=== PATIENT | male | born 1930 | race Caucasian/White ===

== ENCOUNTER 2017-06-23 17:33 | Inpatient (IN) | payer BC, OTHER ==
[~2017-06-23] VITALS: Ht 172.7 cm; Wt 69.4 kg
[2017-06-23] MEDS ORDERED: HYDR25TA4 PO (18:02)
[2017-06-23] MEDS ORDERED: ESOM40CA PO (18:02)
[2017-06-23] MEDS ORDERED: NEBI20TA2 PO (18:02)
[2017-06-23] MEDS ORDERED: PRAV40TA3 PO (18:02)
[2017-06-23] MEDS ORDERED: CILO100T PO (18:02)
--- NOTE | 2017-06-23 19:16 | NUR ---
REPORT RECEIVED. PT MOVED TO 2A. PT C/O HEAD TRAUMA SECONDARY TO A FALL. DENIES KO. ALERT AND ORIENTED. SKINS WARM AND DRY. BANDAGE ON HEAD PLACED BY PM INTACT.
[2017-06-23 19:43] LABS: BASOPHILS % (AUTO) 0.4 % (0.0-2.0); EOSINOPHILS # (AUTO) 0.1 K/uL (0.0-0.7); HEMATOCRIT 39.2 % (36.7-47.1); HEMOGLOBIN 13.5 g/dL (12.5-16.3); LYMPHOCYTES # (AUTO) 0.6 K/uL (20.0-40.0); LYMPHOCYTES % (AUTO) 6.2 % (20.5-51.5); MEAN CORPUSCULAR HEMOGLOBIN 31.1 uug (23.8-33.4); MEAN CORPUSCULAR HGB CONC 35 g/dL (32.5-36.3); MEAN CORPUSCULAR VOLUME 90.1 fL (73.0-96.2); MONOCYTES # (AUTO) 0.7 K/uL (2.0-10.0); NEUTROPHILS # (AUTO) 8.6 K/uL (1.8-8.9); NEUTROPHILS % (AUTO) 85.4 % (38.5-71.5); PLATELET COUNT (AUTO) 204 K/uL (152-348); RED BLOOD CELL COUNT(AUTO) 4.35 MIL/uL (4.06-5.63); WHITE BLOOD COUNT (AUTO) 10.1 K/uL (3.6-10.2)
[2017-06-23 19:57] LABS: ALANINE AMINOTRANSFERASE 22 U/L (16-63); ALKALINE PHOSPHATASE 43 U/L (50-136); ASPARTATE AMINOTRANSFERASE 19 U/L (15-37); BILIRUBIN,DIRECT 0.1 mg/dL (0.0-0.2); BILIRUBIN,TOTAL 0.5 mg/dL (0.2-1.0); CARBON DIOXIDE 32 mmol/L (21-32); CHLORIDE 101 mmol/L (98-107); CREATININE 0.9 mg/dL (0.6-1.3); GLUCOSE 133 mg/dL (74-106); TOTAL PROTEIN, SERUM 7.1 g/dL (6.4-8.2); UREA NITROGEN, BLOOD 20 mg/dL (7-18)
[2017-06-23 19:59] LABS: POTASSIUM 2.8 mmol/L (3.5-5.1)
[2017-06-23] MEDS ORDERED: TDAP DIPH,PERTUSS,TET VAC/PF 0.5 ML DISP.SYRIN IM ONE ×2 (20:00→23:21)
[2017-06-23] MEDS ORDERED: NEOMY/BACITRA/POLYMYXIN B OINT UD PACKET TP ONE ×2 (20:00→22:23)
[2017-06-23] MEDS ORDERED: SODIUM BICARBONATE 4.2 % (NEUT) 5 ML VIAL TP ONE (20:00)
[2017-06-23] MEDS ORDERED: LIDOCAINE HCL 2% 20 ML VIAL TP ONE (20:00)
[2017-06-23] MEDS ORDERED: LET TOPICAL SOLUTION 8 ML UDC TOP ONE (20:00)
--- NOTE | 2017-06-23 20:31 | NUR ---
PT SEEN BY . Rajinder/Kleber - 20G - PLACED IN LEFT A/C. WOUND TO RIGHT HAND AND SCALP IRRIGATED. CXR DONE.
[2017-06-23] MEDS ORDERED: LET TOPICAL SOLUTION 8 ML UDC ONE (20:37)
--- NOTE | 2017-06-23 20:43 | NUR ---
LET APPLIED TO RIGHT HAND.
[2017-06-23] MEDS ORDERED: POT CHLORIDE/POT BICARB/CIT AC 25 MEQ TABLET.EFF PO ONE (20:45)
--- NOTE | 2017-06-23 22:01 | NUR ---
CURRENTLY SUTURING SCALP AND RIGHT HAND.
[2017-06-23] MEDS ORDERED: POTASSIUM BICARBONATE/CIT AC 25 MEQ TABLET.EFF ONE (23:21)
[2017-06-23] MEDS ORDERED: HYDROCODONE/APAP 5-325MG TABLET PO PRN (23:30)
[2017-06-23] MEDS ORDERED: ACETAMINOPHEN 325 MG TABLET PO PRN (23:30)
[2017-06-23] MEDS ORDERED: POTASSIUM CHLORIDE 20 MEQ in IV 1/2NS 1000 ML 1,000 ML IV PRN (23:30)
[2017-06-23] MEDS ORDERED: ONDANSETRON 4 MG/2 ML VIAL IV PRN (23:30)
[2017-06-23] MEDS ORDERED: MAGNESIUM HYDROXIDE 30 ML LIQUID UDC PO PRN (23:30)
[2017-06-23] MEDS ORDERED: TEMAZEPAM 15 MG CAPSULE PO PRN (23:30)
--- NOTE | 2017-06-23 23:53 | NUR ---
ALL RESULTS BACK. DX - INTRACRANIAL BLEED. REPORT GIVEN TO MARYANN. PT TO GO TO 206A
--- NOTE | 2017-06-24 00:20 | NUR ---
ADMITTED NEW PATIENT TO ROOM 206,ACCOMPANY BY ,PATIENT ALERT, ORIENTED X3,SPEECH CLEAR,MOVES ALL EXTREMITIES, DRESSING TO HEAD C/D/I, NO FOCAL NEURO DEFICIT NOTED, ORIENTED TO ROOM AND PLAN OF CARE EXPLAINED TO PATIENT AND FAMILY.SR ON MONITOR.
[2017-06-24 01:00] VITALS: BP 138/68
[2017-06-24 04:56] VITALS: BP 120/56
--- NOTE | 2017-06-24 06:00 | NUR ---
DRESSING CHANGE TO LEFT SCALP LACERATION,SMALL AMOUNT OF BLOODY DRAINAGE NOTED,PATIENT REMAINS STABLE,NEURO CHECK WNL.
--- NOTE | 2017-06-24 06:00 | NUR ---
awake alert and oriented, denies of pain, head dsg in place with scant amount of old blood noted on the laceration site, neuro assessment done, tele SR, explained plan of care- verbalized understanding, sfety measures maintained, call light within reach Addendum: 06/24/17 at 1052 by MARIA D CHAPIN RN entry for 0800
[2017-06-24] MEDS ORDERED: PANTOPRAZOLE SODIUM 40 MG TABLET.DR PO SCH (07:00)
[2017-06-24] MEDS ORDERED: [UNRECOGNIZED DRUG - CODE] PO (07:07)
[2017-06-24] MEDS ORDERED: TEMAZEPAM 7.5 MG CAPSULE PO PRN (07:30)
[2017-06-24 07:33] VITALS: BP 146/69
[2017-06-24 08:22] LABS: IRON, SERUM 82 ug/dL (50-175)
[2017-06-24 08:23] LABS: BASOPHILS % (AUTO) 0.4 % (0.0-2.0); EOSINOPHILS # (AUTO) 0.1 K/uL (0.0-0.7); EOSINOPHILS % (AUTO) 1.9 % (0.0-7.0); HEMATOCRIT 36.5 % (36.7-47.1); HEMOGLOBIN 12.4 g/dL (12.5-16.3); LYMPHOCYTES # (AUTO) 0.8 K/uL (20.0-40.0); LYMPHOCYTES % (AUTO) 13.8 % (20.5-51.5); MEAN CORPUSCULAR HEMOGLOBIN 30.9 uug (23.8-33.4); MEAN CORPUSCULAR HGB CONC 34 g/dL (32.5-36.3); MEAN CORPUSCULAR VOLUME 90.7 fL (73.0-96.2); MONOCYTES # (AUTO) 0.7 K/uL (2.0-10.0); MONOCYTES % (AUTO) 12.3 % (0.0-11.0); NEUTROPHILS # (AUTO) 4.3 K/uL (1.8-8.9); NEUTROPHILS % (AUTO) 71.6 % (38.5-71.5); PLATELET COUNT (AUTO) 202 K/uL (152-348); RED BLOOD CELL COUNT(AUTO) 4.02 MIL/uL (4.06-5.63)
[2017-06-24 08:25] LABS: THYROID STIMULATING HORMONE 0.386 mIU/mL (0.358-3.740)
[2017-06-24 08:47] LABS: ALANINE AMINOTRANSFERASE 15 U/L (16-63); ALKALINE PHOSPHATASE 39 U/L (50-136); ASPARTATE AMINOTRANSFERASE 24 U/L (15-37); BILIRUBIN,TOTAL 0.3 mg/dL (0.2-1.0); CARBON DIOXIDE 31 mmol/L (21-32); CHLORIDE 103 mmol/L (98-107); CHOLESTEROL 119 mg/dL (<200); GLUCOSE 97 mg/dL (74-106); HDL CHOLESTEROL 61 mg/dL (40-60); MAGNESIUM 1.8 mg/dL (1.8-2.4); PHOSPHOROUS 3.3 mg/dL (2.5-4.9); POTASSIUM 3.1 mmol/L (3.5-5.1); TOTAL PROTEIN, SERUM 6.4 g/dL (6.4-8.2); TRIGLYCERIDES 92 MG/DL (30-150); UREA NITROGEN, BLOOD 21 mg/dL (7-18)
--- NOTE | 2017-06-24 09:45 | NUR ---
seen by Dr Lau with order for CT head with/without contrast- consent signed
[2017-06-24] MEDS ORDERED: IV NORMAL SALINE 250 ML IV ONE (09:58)
[2017-06-24] MEDS ORDERED: IOHEXOL 300MG/ML 100 ML INFUS..BTL ONE (09:58)
--- NOTE | 2017-06-24 10:30 | NUR ---
spoke to daughter Jenny- pt doesn't have any record Pneumonia vaccine given- requesting to be given upon discharge. Addendum: 06/24/17 at 1048 by MARIA D CHAPIN RN error
--- NOTE | 2017-06-24 10:45 | NUR ---
to CT dept per bed- at bedside
[2017-06-24 11:22] VITALS: BP 141/51
[2017-06-24] MEDS ORDERED: POTASSIUM CHLORIDE 20 MEQ TAB.PRT.SR PO ONE (11:30)
--- NOTE | 2017-06-24 12:00 | NUR ---
no change in neuro assessment
--- NOTE | 2017-06-24 14:30 | NUR ---
dsg on head off- cleansed scalp laceration with saline and washed surrounding areas, dried blood removed, 4x4 dsg applied
--- NOTE | 2017-06-24 15:30 | NUR ---
seen by Dr Mahoney- spoke to family at bedside
[2017-06-24 15:36] VITALS: BP 118/46
--- NOTE | 2017-06-24 15:40 | NUR ---
called Dr Lau's office and relayed CT scan head result and pt wants to go home
--- NOTE | 2017-06-24 16:20 | NUR ---
Dr Lau's office called and ok to be d/cd
--- NOTE | 2017-06-24 16:25 | NUR ---
Dr Mahoney informed- pt is going home, informed
[2017-06-24] MEDS ORDERED: ACET325T53 PO (17:49)
--- NOTE | 2017-06-24 18:20 | NUR ---
saline lock removed- no swelling/redness onsite, tele removed, discharge and medications instructions given- verbalized understanding, refused med instructions by pharmacist.
--- NOTE | 2017-06-24 18:30 | NUR ---
escorted to car per w/c with and daughter in stable condition, all belongings with him
[2017-06-24] MEDS ORDERED: DOCUSATE SODIUM 100 MG CAPSULE PO SCH (21:00)
== END 2017-06-24 18:30 | disposition home health service (06) | DRG 87 ==
LOC: ER 17:33 → DOU 06-24 00:25 → TELE-TD 06-24 01:00
PROVIDERS: ADMIT Internal Medicine; ATTEND Internal Medicine
PROC: 0HQ0XZZ Repair Scalp Skin, External Approach (ICD-10-PCS; principal; 2017-06-24)
PROC: 0HQFXZZ Repair Right Hand Skin, External Approach (ICD-10-PCS; principal; 2017-06-24)
DX: S06.340A Traumatic hemorrhage of right cerebrum without loss of consciousness, initial encounter (principal); I73.9 Peripheral vascular disease, unspecified; E78.5 Hyperlipidemia, unspecified; S01.01XA Laceration without foreign body of scalp, initial encounter; S61.216A Laceration without foreign body of right little finger without damage to nail, initial encounter; E87.6 Hypokalemia; I10 Essential (primary) hypertension; K21.9 Gastro-esophageal reflux disease without esophagitis; R73.03 Prediabetes; W01.0XXA Fall on same level from slipping, tripping and stumbling without subsequent striking against object, initial encounter; Y93.89 Activity, other specified; Y92.009 Unspecified place in unspecified non-institutional (private) residence as the place of occurrence of the external cause; M50.30 Other cervical disc degeneration, unspecified cervical region; M19.90 Unspecified osteoarthritis, unspecified site
CPT/HCPCS: 36415; 70030-TC; 70450; 70470; 71010; 72125; 73130; 83550; 83735; 84100; 84443; 85025; 85730; 90715; 93005; A4217; A4663; J3480; J3490; J7050; Q9967